=== PATIENT | female | born 1990 | race Caucasian/White ===

== ENCOUNTER 2021-08-19 05:22 | Inpatient (IN) | payer OTHER ==
[2021-08-19 06:19] LABS: HEMOGLOBIN 10.7 gm/dl (12.3-15.3); RED BLOOD COUNT 3.52 M/UL (4.00-5.10); WHITE BLOOD COUNT 8.3 K/UL (4.5-11.0)
[2021-08-19] MEDS ORDERED: DOCUSATE SODIU100 MG PO (08:00)
[2021-08-19] MEDS ORDERED: HYDROCODON-ACE1 EAC4 PO (08:00)
[2021-08-19] MEDS ORDERED: IBUPROFEN600 MG PO (08:00)
== END 2021-08-21 15:44 | disposition home or self-care (01) | DRG 788 ==
LOC: OB 05:22
PROVIDERS: ADMIT Obstetrics & Gynecology
PROC: 4A1HXCZ Monitoring of Products of Conception, Cardiac Rate, External Approach (ICD-10-PCS; 2021-08-19)
PROC: 10D00Z1 Extraction of Products of Conception, Low, Open Approach (ICD-10-PCS; principal; 2021-08-19 07:30)
DX: O34.211 Maternal care for low transverse scar from previous cesarean delivery (principal); Z3A.39 39 weeks gestation of pregnancy; Z37.0 Single live birth; O36.63X0 Maternal care for excessive fetal growth, third trimester, not applicable or unspecified; Z20.822 Contact with and (suspected) exposure to COVID-19
CPT/HCPCS: 36415; 81001; 82800; 85014; 85018; 85025; 86900; 86901; 90715; C9113; J0690; J2274; J2370; J2405; J2590; J7120; U0002